=== PATIENT | male | born 1950 | race Caucasian/White ===

== ENCOUNTER 2019-04-04 16:39 | Observation (INO) ==
[2019-04-04 17:25] LABS: Basophils % 0.6 %; Eosinophils # 0.1 K/mcL (0.0-0.6); Eosinophils % 0.8 %; Hemoglobin 15.4 g/dL (12.9-16.9); Lymphocytes # 0.9 K/mcL (0.6-4.6); Lymphocytes % 11.7 %; Mean Corpuscular HGB Conc 33.5 g/dL (31.6-35.5); Mean Corpuscular Hemoglobin 32.5 pg (28.0-33.3); Mean Platelet Volume 9.8 fL (9.4-12.4); Monocytes # 0.7 K/mcL (0.0-1.3); Neutrophils # 5.5 K/mcL (1.6-8.9); Platelet Count 182 K/mcL (140-400); Red Blood Count 4.74 M/mcL (4.19-5.50); Red Cell Distribution Width 12.2 % (11.5-14.5); Segmented Neutrophils % 75.9 %; White Blood Count 7.3 K/mcL (4.3-11.1)
[2019-04-04 17:41] LABS: INR 1.1; Prothrombin Time 12.7 Seconds (9.4-12.1)
[2019-04-04 17:44] LABS: Activated Partial Thrombo Time 32.1 Seconds (26.0-36.0)
[2019-04-04 17:45] LABS: Alanine Aminotransferase 21 Units/L (7-52); Albumin 4.2 g/dL (3.5-5.7); Alkaline Phosphatase 121 Units/L (34-104); Aspartate Amino Transferase 31 Units/L (13-39); BUN/Creatinine Ratio 10 (6-26); Bilirubin,Direct 0.2 mg/dL (0.0-0.2); Bilirubin,Indirect 0.4 mg/dL (0.0-1.2); Bilirubin,Total 0.6 mg/dL (0.3-1.0); Blood Urea Nitrogen 9 mg/dL (8-23); Calcium 9.3 mg/dL (8.6-10.3); Carbon Dioxide 25 mEq/L (23-29); Chloride 103 mEq/L (98-107); Ethanol < 10 mg/dL (Less than 10); Globulin 4.3 g/dL (2.4-3.5); Glucose 123 mg/dL (70-105); Osmolality,Calculated 286 (280-300); Potassium 3.9 mEq/L (3.5-5.1); Sodium 138 mEq/L (136-145); Total Protein 8.5 g/dL (6.4-8.9); Troponin I < 0.03 ng/mL (< 0.04); eGFR For African Americans > 60 (> 60); eGFR For Non-African Americans > 60 (> 60)
[2019-04-04 17:56] LABS: Thyroid Stimulating Hormone 2.099 mcIU/mL (0.340-5.600)
[2019-04-04 18:21] LABS: Phenytoin (Dilantin) 15.9 mcg/mL (10.0-20.0)
[2019-04-04 19:03] LABS: Bilirubin,Urine Moderate (Negative); Blood,Urine Negative (Negative); Clarity,Urine Clear (Clear); Color,Urine Dark Yellow (Yellow); Glucose,Urine (UA) Normal (Normal); Ketones,Urine Trace mg/dL (Negative); Leukocyte Esterase,Urine Trace (Negative); Nitrite,Urine Negative (Negative); Protein,Urine Trace mg/dL (Neg-Trace); Urobilinogen,Urine Normal (Normal)
[2019-04-04 19:05] LABS: Bacteria,Urine None Seen per hpf (None-Few); Hyaline Casts,Urine None Seen per lpf (None-Few); RBC,Urine 0-3 per hpf (0-3); Squamous Epithelial Cell,Urine Many per lpf (None-Few); WBC,Urine 0-3 per hpf (0-3)
[2019-04-04 19:11] LABS: Amphetamine Screen,Urine Negative ng/mL (Cutoff=1000); Barbiturate Screen,Urine Negative ng/mL (Cutoff=200); Benzodiazepines Screen,Urine Negative ng/mL (Cutoff=200); Cannabinoid Screen,Urine Negative ng/mL (Cutoff = 50); Cocaine Screen,Urine Negative ng/mL (Cutoff= 300); Opiate Screen,Urine Negative ng/mL (Cutoff=300); Phencyclidine Screen,Urine Negative ng/mL (Cutoff=25)
[2019-04-04] MEDS ORDERED: Lactulose 200 GM, Sodium Chloride IRRigation 700 ML RC ONE (19:28)
[2019-04-04] MEDS ORDERED: Isovue-370 500 ML BOTTLE IVP ONE (19:30)
[2019-04-04] MEDS ORDERED: Naloxone 0.4 MG/ML INJ IVP PRN (23:24)
[2019-04-04] MEDS ORDERED: Lactulose 200 GM/300 ML (for enema) RC SCH (23:45)
[2019-04-04] MEDS ORDERED: 0.9 % Sodium Chloride 1,000 ML IVC ONE (23:57)
[2019-04-05] MEDS: Lactulose 200 GM, Sodium Chloride IRRigation 700 ML RC SCH ×3 (00:12→20:30)
[2019-04-05] MEDS: Nystatin SUSP 5 ML UD.LIQ BC SCH ×5 (00:35→20:08)
[2019-04-05 05:33] LABS: Hematocrit 41.1 % (37.5-50.1); Mean Corpuscular HGB Conc 33.3 g/dL (31.6-35.5); Mean Corpuscular Hemoglobin 32.4 pg (28.0-33.3); Mean Corpuscular Volume 97.2 fL (83.0-100.0); Mean Platelet Volume 9.7 fL (9.4-12.4); Platelet Count 179 K/mcL (140-400); Red Blood Count 4.23 M/mcL (4.19-5.50); Red Cell Distribution Width 12.4 % (11.5-14.5)
[2019-04-05 05:35] LABS: Hemoglobin 13.7 g/dL (12.9-16.9)
[2019-04-05 05:43] LABS: INR 1.2; Prothrombin Time 13.9 Seconds (9.4-12.1)
[2019-04-05 05:54] LABS: Alanine Aminotransferase 20 Units/L (7-52); Albumin 3.7 g/dL (3.5-5.7); Alkaline Phosphatase 104 Units/L (34-104); Aspartate Amino Transferase 32 Units/L (13-39); BUN/Creatinine Ratio 14 (6-26); Bilirubin,Total 0.5 mg/dL (0.3-1.0); Blood Urea Nitrogen 10 mg/dL (8-23); Calcium 8.8 mg/dL (8.6-10.3); Carbon Dioxide 23 mEq/L (23-29); Chloride 109 mEq/L (98-107); Globulin 3.8 g/dL (2.4-3.5); Glucose 112 mg/dL (70-105); Osmolality,Calculated 286 (280-300); Potassium 3.9 mEq/L (3.5-5.1); Sodium 138 mEq/L (136-145); Total Protein 7.5 g/dL (6.4-8.9); eGFR For African Americans > 60 (> 60); eGFR For Non-African Americans > 60 (> 60)
[2019-04-05] MEDS ORDERED: E-Z-PAQUE (BARIUM SULF) SUSP 1 BOTTLE PO ONE (10:05)
[2019-04-05] MEDS ORDERED: E-Z-HD (BARIUM SULF) SUSPENSION PO ONE (10:05)
[2019-04-05] MEDS ORDERED: LEVETIRACETAM 1500 MG PO SCH (12:00)
[2019-04-05] MEDS: levETIRAcetam 500 MG/5 ML UDC PO SCH ×2 (12:43→20:08)
[2019-04-05] MEDS: Phenytoin Oral Susp 100 MG/4 ML UDC PO SCH ×2 (12:43→20:08)
[2019-04-05] MEDS ORDERED: Ipratropium/Albuterol Neb 3 ML IH PRN (14:02)
[2019-04-05] MEDS: Lithium Oral Soln 300 MG/5 ML (8 mEq/5mL) UDC PO SCH ×2 (15:20→20:08)
[2019-04-05] MEDS: Niacin (24 HR) 500 MG TAB.ER.24H PO SCH (20:09)
[2019-04-06 05:30] LABS: Basophils % 0.7 %; Eosinophils # 0.2 K/mcL (0.0-0.6); Eosinophils % 3.9 %; Hematocrit 38.8 % (37.5-50.1); Hemoglobin 12.9 g/dL (12.9-16.9); Immature Granulocytes % 1.2 % (0-4); Lymphocytes # 1.1 K/mcL (0.6-4.6); Lymphocytes % 18.6 %; Mean Corpuscular HGB Conc 33.2 g/dL (31.6-35.5); Mean Corpuscular Hemoglobin 32.7 pg (28.0-33.3); Mean Corpuscular Volume 98.2 fL (83.0-100.0); Mean Platelet Volume 9.7 fL (9.4-12.4); Monocytes # 0.9 K/mcL (0.0-1.3); Monocytes % 15.8 %; Neutrophils # 3.4 K/mcL (1.6-8.9); Platelet Count 165 K/mcL (140-400); Red Blood Count 3.95 M/mcL (4.19-5.50); Red Cell Distribution Width 12.5 % (11.5-14.5); Segmented Neutrophils % 59.8 %; White Blood Count 5.7 K/mcL (4.3-11.1)
[2019-04-06 07:26] LABS: Alanine Aminotransferase 20 Units/L (7-52); Albumin 3.5 g/dL (3.5-5.7); Albumin/Globulin Ratio 0.9 (1.1-2.2); Alkaline Phosphatase 85 Units/L (34-104); Aspartate Amino Transferase 33 Units/L (13-39); BUN/Creatinine Ratio 16 (6-26); Bilirubin,Total 0.5 mg/dL (0.3-1.0); Blood Urea Nitrogen 10 mg/dL (8-23); Calcium 8.6 mg/dL (8.6-10.3); Carbon Dioxide 23 mEq/L (23-29); Chloride 111 mEq/L (98-107); Globulin 3.7 g/dL (2.4-3.5); Potassium 3.9 mEq/L (3.5-5.1); Sodium 138 mEq/L (136-145); Total Protein 7.2 g/dL (6.4-8.9); eGFR For African Americans > 60 (> 60); eGFR For Non-African Americans > 60 (> 60)
[2019-04-06 07:45] LABS: Glucose 102 mg/dL (70-105); Osmolality,Calculated 285 (280-300)
[2019-04-06] MEDS: Lithium Oral Soln 300 MG/5 ML (8 mEq/5mL) UDC PO SCH ×3 (08:26→20:12)
[2019-04-06] MEDS: Nystatin SUSP 5 ML UD.LIQ BC SCH ×2 (08:27→12:38)
[2019-04-06] MEDS: Phenytoin Oral Susp 100 MG/4 ML UDC PO SCH ×2 (08:28→20:13)
[2019-04-06] MEDS: Lactulose 200 GM, Sodium Chloride IRRigation 700 ML RC SCH ×2 (09:24→20:21)
[2019-04-06] MEDS: levETIRAcetam 500 MG/5 ML UDC PO SCH ×2 (09:24→20:15)
[2019-04-06 11:28] LABS: Folate > 22.3 ng/mL (3.0-16.0); Vitamin B12 266 pg/mL (250-1100)
[2019-04-06] MEDS: Lactulose Oral Soln 20 GM/30 ML UDC PO SCH ×2 (14:12→20:18)
[2019-04-06] MEDS: Nystatin SUSP 5 ML UD.LIQ PO SCH ×2 (16:11→20:20)
[2019-04-06] MEDS: Niacin (24 HR) 500 MG TAB.ER.24H PO SCH (20:21)
[2019-04-07] MEDS: Nystatin SUSP 5 ML UD.LIQ PO SCH ×3 (08:35→15:46)
[2019-04-07] MEDS: Lithium Oral Soln 300 MG/5 ML (8 mEq/5mL) UDC PO SCH ×2 (08:35→15:46)
[2019-04-07] MEDS: Phenytoin Oral Susp 100 MG/4 ML UDC PO SCH (08:35)
[2019-04-07] MEDS: Lactulose Oral Soln 20 GM/30 ML UDC PO SCH ×2 (08:35→15:46)
[2019-04-07] MEDS ORDERED: levETIRAcetam 250 MG TABLET PO SCH ×2 (08:43→18:00)
[2019-04-07 14:46] VITALS: BP 113/75
== END 2019-04-07 19:24 ==
LOC: 3ANU 16:39 → EMEROOARM 16:39 → SUATTDRO 20:08 → 3ANU 20:43
PROVIDERS: ADMIT Family Medicine; ATTEND Internal Medicine